=== PATIENT | male | born 1950 ===

== ENCOUNTER 2020-04-01 16:51 | Outpatient (REF) | payer SELFPAY ==
[2020-04-01 17:19] LABS: Anion Gap 6.1 mmol/L (3-11); BUN 17 mg/dL (7-18); CO2 29.9 mmol/L (21.0-32.0); Calcium 8.6 mg/dL (8.5-10.1); Chloride 99 mmol/L (98-107); Glucose 103 mg/dL (74-106); Potassium 4.5 mmol/L (3.5-5.1); Sodium 135 mmol/L (136-145)
[2020-04-02 14:57] LABS: COVID-19 RT-PCR Result Not Detected ((See Note))
== END 2020-04-01 16:52 | disposition home or self-care (01) ==
LOC: NCHCN 16:51
PROVIDERS: PCP Internal Medicine; Visit Provider Internal Medicine
DX: I50.32 Chronic diastolic (congestive) heart failure (principal); R68.89 Other general symptoms and signs; Z11.52 Encounter for screening for COVID-19
CPT/HCPCS: 80048; U0003